=== PATIENT | male | born 2000 | race Caucasian/White ===

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

== ENCOUNTER 2022-04-20 22:08 | Emergency (ER) | payer MEDICAID, OTHER ==
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
[2022-04-21 02:07] VITALS: BP 127/78; PULSE 73
[2022-04-21 02:09] VITALS: O2SAT 97
[2022-04-21] MEDS ORDERED: PERCOCET TABLET 5/325MG PO STA (02:11)
[2022-04-21] MEDS ORDERED: PERCOCET TABLET 5/325MG ONE (02:26)
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
== END 2022-04-21 02:58 | disposition home or self-care (01) ==
LOC: ED 22:08
DX: S20.212A Contusion of left front wall of thorax, initial encounter (principal); S30.1XXA Contusion of abdominal wall, initial encounter; S30.0XXA Contusion of lower back and pelvis, initial encounter; V48.5XXA Car driver injured in noncollision transport accident in traffic accident, initial encounter; R51.9 Headache, unspecified; Z79.891 Long term (current) use of opiate analgesic; Z28.310 Unvaccinated for COVID-19
CPT/HCPCS: 70450; 71250; 72125; 74176; 76376; 93005; 99283; A9270-GY

== ENCOUNTER 2024-09-26 05:34 | Emergency (ER) | payer BC, OTHER ==
[2024-09-26 05:44] VITALS: TEMP 98.4
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
[2024-09-26] MEDS: BABY ASPIRIN 81 MG CHEW PO ONE (06:16)
[2024-09-26 06:17] LABS: Absolute Neutrophil Ct (ANC) 10.26 x10^3/uL (1.78-5.38); BASOPHIL % 0.3 % (0.2-1.2); Basophil (Absolute #) 0.04 x10^3/uL (0.01-0.08); Eosinophil % 0.5 % (0.8-7.0); Eosinophil (Absolute #) 0.07 x10^3/uL (0.04-0.54); Hematocrit 47.1 % (40.1-51.0); Hemoglobin 16.2 g/dL (13.7-17.5); IMMATURE GRAN # 0.08 x10^3u/L (0.001-0.031); IMMATURE GRAN % 0.6 % (0.001-0.429); Lymphocyte (Absolute #) 1.31 x10^3/uL (1.32-3.57); Lymphocytes % 9.8 % (21.8-53.1); Mean Cell Volume 85.6 fL (79.0-92.2); Mean Corpuscular Hemoglobin 29.5 pg (25.7-32.2); Mean Corpuscular Hgb Concent. 34.4 g/dL (32.3-36.5); Mean Platelet Volume 10.2 fL (9.4-12.4); Monocyte (Absolute #) 1.61 x10^3/uL (0.30-0.82); Neutrophil % 76.8 % (34.0-67.9); Platelet Count 250 x10^3/uL (163-337); Red Cell Distribution Width 13.2 % (11.6-14.4); White Blood Count 13.4 x10^3/uL (4.23-9.07)
[2024-09-26 06:33] LABS: ALBUMIN 4.8 g/dL (3.5-5.0); ANION GAP 13.8 MEQ/L (5-15); BILIRUBIN,TOTAL 0.4 mg/dL (0.2-1.3); Creatinine 1 1.07 mg/dL (0.66-1.25); EST GLOMERULAR FILTRATION RATE 100.6 ML/MIN; MAGNESIUM 2.2 mg/dL (1.6-2.3); Potassium 3.7 mmol/L (3.5-5.1)
[2024-09-26 08:03] LABS: Amphetamine,Urine NEGATIVE (NEGATIVE); Barbiturate,Urine NEGATIVE (NEGATIVE); Benzodiazepine,Urine NEGATIVE (NEGATIVE); Cocaine,Urine NEGATIVE (NEGATIVE); Methadone,Urine NEGATIVE (NEGATIVE); Opiate,Urine NEGATIVE (NEGATIVE); PCP,Urine NEGATIVE (NEGATIVE); THC,Urine NEGATIVE (NEGATIVE)
[2024-09-26 09:16] VITALS: O2SAT 97
[2024-09-26 09:25] LABS: Slide Review 1 YES
--- NOTE | 2024-09-26 09:38 | XRAY ---
Indication: Chest pain. Comparison: July 18, 2017. Portable chest is now underinflated and remains clear. Heart not enlarged. Bony thorax intact. No new/acute findings.
[2024-09-26 10:14] VITALS: BP 109/75; PULSE 92; RESP 22
== END 2024-09-26 10:19 | disposition home or self-care (01) ==
LOC: ED 05:34
DX: R07.9 Chest pain, unspecified (principal); I10 Essential (primary) hypertension; Z79.84 Long term (current) use of oral hypoglycemic drugs; Z79.899 Other long term (current) drug therapy
CPT/HCPCS: 36415; 71045; 80053; 80307; 83735; 84484; 85025; 85379; 93005; 93041; 94760; 99284; 99285; A9270-GY

== ENCOUNTER 2025-06-07 06:38 | Emergency (ER) | payer BC ==
[2025-06-07 06:44] VITALS: TEMP 96.9
[2025-06-07 07:05] VITALS: RESP 17
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
[2025-06-07] MEDS ORDERED: MOTRIN 600 MG ONE (07:29)
[2025-06-07] MEDS: MOTRIN 600 MG PO ONE (07:30)
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
[2025-06-07 08:51] VITALS: PULSE 76
[2025-06-07 08:58] VITALS: O2SAT 96
[2025-06-07 09:04] VITALS: BP 131/65
== END 2025-06-07 09:08 | disposition home or self-care (01) ==
LOC: ED 06:38
DX: T14.8XXA Other injury of unspecified body region, initial encounter (principal); V48.5XXA Car driver injured in noncollision transport accident in traffic accident, initial encounter; R07.9 Chest pain, unspecified; M54.2 Cervicalgia; M25.552 Pain in left hip; R10.9 Unspecified abdominal pain; I10 Essential (primary) hypertension; Z79.899 Other long term (current) drug therapy